=== PATIENT | male | born 1970 | race Caucasian/White ===

== ENCOUNTER 2016-10-31 07:28 | Emergency (ER) | payer MEDICAID ==
[~2016-10-31] VITALS: Ht 167.6 cm; Wt 64.0 kg
[~2016-10-31 07:28] MED LIST: IBUP-22
[2016-10-31 07:36] VITALS: BP 163/107
== END 2016-10-31 10:21 | disposition home or self-care (01) ==
LOC: ER 08:05
DX: L73.9 Follicular disorder, unspecified (principal); Z87.891 Personal history of nicotine dependence; Z88.0 Allergy status to penicillin; Z88.2 Allergy status to sulfonamides
CPT/HCPCS: 99282; Z7610

== ENCOUNTER 2016-12-15 09:52 | Emergency (ER) | payer MEDICAID | END 2016-12-15 11:05 | disposition left against medical advice (07) | LOC: ER 11:05 | DX: S61.411A Laceration without foreign body of right hand, initial encounter (principal); Z53.21 Procedure and treatment not carried out due to patient leaving prior to being seen by health care provider; X58.XXXA Exposure to other specified factors, initial encounter; Y93.89 Activity, other specified; Y99.8 Other external cause status; Y92.89 Other specified places as the place of occurrence of the external cause ==

== ENCOUNTER 2016-12-18 12:44 | Emergency (ER) | payer MEDICAID ==
[~2016-12-18] VITALS: Ht 170.2 cm; Wt 65.0 kg
[2016-12-18] MEDS ORDERED: TETANUS AND DIPHTHERIA TOX/PF 0.5ML SYR (ADULT) IM ONE (14:00)
[2016-12-18] MEDS ORDERED: TETANUS, DIPHTHERIA, PERTUSSIS VAC/PF 0.5ML (>7YR OLD) IM ONE (15:00)
[2016-12-18 15:11] VITALS: BP 120/68
== END 2016-12-18 15:12 | disposition home or self-care (01) ==
LOC: ER 13:54
DX: S61.411D Laceration without foreign body of right hand, subsequent encounter (principal); Z88.2 Allergy status to sulfonamides; Z88.8 Allergy status to other drugs, medicaments and biological substances
CPT/HCPCS: 90471; 90714; 90715; 99283

== ENCOUNTER 2016-12-22 12:29 | Emergency (ER) | payer MEDICAID ==
[~2016-12-22] VITALS: Ht 167.6 cm; Wt 64.0 kg
[2016-12-22 13:26] VITALS: BP 171/102
== END 2016-12-22 13:44 | disposition left against medical advice (07) ==
LOC: ER 13:05
DX: Z04.8 Encounter for examination and observation for other specified reasons (principal)
CPT/HCPCS: 99281; Z7610

== ENCOUNTER 2016-12-27 18:00 | Emergency (ER) | payer MEDICAID ==
[~2016-12-27] VITALS: Ht 172.7 cm; Wt 65.0 kg
[2016-12-27 18:15] VITALS: BP 217/133
== END 2016-12-27 20:05 | disposition left against medical advice (07) ==
LOC: ER 20:04
DX: M79.643 Pain in unspecified hand (principal); Z53.21 Procedure and treatment not carried out due to patient leaving prior to being seen by health care provider

== ENCOUNTER 2017-02-02 09:56 | Emergency (ER) | payer MEDICAID ==
[~2017-02-02] VITALS: Ht 172.7 cm; Wt 60.0 kg
[2017-02-02] MEDS ORDERED: SODIUM CHLORIDE 0.9% IRRIG SOLUTION 1000ML IR ONE (11:00)
[2017-02-02] MEDS ORDERED: LIDOCAINE HCL/EPINEPHRINE 1%-EPI 1:100,000 20 ML VIAL INFIL ONE (11:00)
[2017-02-02] MEDS ORDERED: KETOROLAC 60MG/2ML VIAL IM ONE (11:00)
[2017-02-02] MEDS ORDERED: LIDOCAINE HCL 1%/EPI 1:200,000 30 ML VIAL MC ONE (11:30)
[2017-02-02 13:12] VITALS: BP 154/88
== END 2017-02-02 13:30 | disposition home or self-care (01) ==
LOC: ER 10:34
DX: H05.012 Cellulitis of left orbit (principal); H00.036 Abscess of eyelid left eye, unspecified eyelid; Z88.0 Allergy status to penicillin; Z20.6 Contact with and (suspected) exposure to human immunodeficiency virus [HIV]; Z88.2 Allergy status to sulfonamides
CPT/HCPCS: 10060; 96372; 99283; A4217; J1885; J3490; X7700; Z7610

== ENCOUNTER 2017-02-10 00:04 | Emergency (ER) | payer MEDICAID ==
[~2017-02-10] VITALS: Ht 172.7 cm; Wt 63.0 kg
[2017-02-10 04:00] VITALS: BP 199/116
[2017-02-10] MEDS ORDERED: ACETAMINOPHEN 325MG TABLET PO ONE (04:15)
== END 2017-02-10 05:31 | disposition left against medical advice (07) ==
LOC: ER 00:04
DX: T14.8 Other injury of unspecified body region (principal); L03.818 Cellulitis of other sites; W57.XXXA Bitten or stung by nonvenomous insect and other nonvenomous arthropods, initial encounter; Y93.89 Activity, other specified; R23.8 Other skin changes; R03.0 Elevated blood-pressure reading, without diagnosis of hypertension; Y92.89 Other specified places as the place of occurrence of the external cause; F12.90 Cannabis use, unspecified, uncomplicated; Z88.2 Allergy status to sulfonamides; Z88.1 Allergy status to other antibiotic agents; Z88.0 Allergy status to penicillin
CPT/HCPCS: 99283; Z7610

== ENCOUNTER 2017-03-10 15:40 | Inpatient (IN) | payer MEDICAID ==
[~2017-03-10] VITALS: Ht 172.7 cm; Wt 54.4 kg
[2017-03-10] MEDS ORDERED: MORPHINE SULFATE 4 MG/ML CPJ (NOT FOR IM USE) IV STA (18:11)
[2017-03-10] MEDS ORDERED: ONDANSETRON HCL 4MG/2ML VIAL IV STA (18:11)
[2017-03-10] MEDS ORDERED: SODIUM CHLORIDE 0.9% 1,000 ML IV ONE (18:11)
[2017-03-10] MEDS ORDERED: HYDRALAZINE 20MG/ML VIAL IV ONE (18:15)
[2017-03-10 18:29] LABS: HEMATOCRIT. 25.1 % (42.0-52.0); HEMOGLOBIN. 8.7 g/dL (14.0-18.0); MEAN CORPUSCULAR HEMOGLOBIN 33.7 pg (28.0-32.0); MEAN CORPUSCULAR VOLUME 97.4 fL (80.0-94.0); MEAN PLATELET VOLUME 7.8 fl (7.4-10.4); PLATELET 170 x1000/uL (130-400); RED BLOOD CELL COUNT 2.57 mill/uL (4.7-6.1); RED CELL DISTRIBUTION WIDTH 17.2 % (11.6-14.6)
[2017-03-10 18:30] LABS: PROTHROMBIN TIME 10.6 sec (9.4-11.6)
[2017-03-10 18:39] LABS: CARBON DIOXIDE 25 mEq/L (21-32); CHLORIDE 97 mEq/L (98-107); TROPONIN I 0.02 ng/mL (0.00-0.04)
[2017-03-10 18:56] LABS: CLARITY URINE CLEAR (CLEAR); COLOR URINE YELLOW (YELLOW); GLUCOSE URINE TRACE (NEGATIVE); KETONES URINE NEGATIVE (NEGATIVE); LEUKOCYTE ESTERASE URINE TRACE (NEGATIVE); NITRITE URINE NEGATIVE (NEGATIVE); OCCULT BLOOD URINE 1+ (NEGATIVE); PROTEIN URINE 2+ (NEGATIVE); SPECIFIC GRAVITY URINE 1.014 (1.005-1.030)
[2017-03-10 20:10] LABS: PLATELET ESTIMATE NORMAL
[2017-03-11] MEDS ORDERED: LABETALOL 5MG/ML SYR 20 MG/4 ML SYRINGE IV NR (05:30)
[2017-03-11] MEDS ORDERED: LABETALOL HCL 20MG/4ML CARPUJECT IV ONE (05:30)
[2017-03-11] MEDS ORDERED: ONDANSETRON HCL 4MG/2ML VIAL IV PRN ×2 (10:15→13:45)
[2017-03-11] MEDS ORDERED: HYDROCODONE/ACETAMINOPHEN 5/325MG TABLET PO PRN (10:15)
[2017-03-11] MEDS ORDERED: IPRATROPIUM/ALBUTEROL 0.5-3(2.5)MG/3ML NEB INH PRN (10:15)
[2017-03-11] MEDS ORDERED: DOCUSATE SODIUM 100MG CAPSULE PO PRN (10:15)
[2017-03-11 10:21] VITALS: BP 193/118
[2017-03-11] MEDS: METOPROLOL TARTRATE 25MG TABLET PO SCH ×2 (11:24→22:11)
[2017-03-11] MEDS: AMLODIPINE 10MG TABLET PO SCH (11:24)
[2017-03-11] MEDS: MORPHINE SULFATE 4 MG/ML CPJ (NOT FOR IM USE) IV PRN ×2 (11:27→22:25)
[2017-03-11] MEDS: SODIUM CHLORIDE 0.45% 1,000 ML IV SCH (11:33)
[2017-03-11] MEDS ORDERED: BACITRACIN ZINC 15GM TUBE TOP ONE (11:34)
[2017-03-11] MEDS ORDERED: NORMAL SALINE 0.9% 10 ML SYR ONE (11:35)
[2017-03-11] MEDS ORDERED: VANCOMYCIN HCL 500 MG/VIAL ONE (11:35)
[2017-03-11] MEDS ORDERED: BACITRACIN 50,000 UNITS/VIAL ONE (11:35)
[2017-03-11] MEDS ORDERED: PROPOFOL 200MG/20ML VIAL IV ONE (12:36)
[2017-03-11] MEDS ORDERED: LIDOCAINE HCL 1% 20ML VIAL (Pyxis) INJ ONE (12:36)
[2017-03-11] MEDS ORDERED: ROCURONIUM BROMIDE 10MG/ML VIAL 5ML IV ONE (12:36)
[2017-03-11] MEDS ORDERED: MIDAZOLAM HCL 2 MG/2 ML VIAL ONE (12:36)
[2017-03-11] MEDS ORDERED: FENTANYL CITRATE/PF 50MCG/ML 2ML VIAL ONE (12:36)
[2017-03-11] MEDS ORDERED: SUCCINYLCHOLINE CHLORIDE 200MG/10ML VIAL IV ONE (12:37)
[2017-03-11] MEDS ORDERED: CEFAZOLIN SODIUM 1000MG/VIAL ONE (12:51)
[2017-03-11] MEDS ORDERED: ONDANSETRON HCL 4MG/2ML VIAL ONE (13:30)
[2017-03-11] MEDS ORDERED: GLYCOPYRROLATE 0.2 MG/ML 2ML VIAL ONE (13:33)
[2017-03-11] MEDS ORDERED: NEOSTIGMINE METHYLSULFATE 1MG/ML 10 ML VIAL ONE (13:33)
[2017-03-11] MEDS ORDERED: SODIUM CHLORIDE 0.9% 1,000 ML IV SCH (13:42)
[2017-03-11] MEDS ORDERED: HYDRALAZINE 20MG/ML VIAL IV PRN (13:45)
[2017-03-11] MEDS ORDERED: HYDROMORPHONE HCL/PF 2MG/ML CPJ IV PRN (13:45)
[2017-03-11 16:04] VITALS: BP 140/87
[2017-03-11 20:00] VITALS: BP 154/96
[2017-03-11] MEDS: CEFAZOLIN 1000MG PREMIX 50 ML IV SCH (22:12)
[2017-03-12] VITALS: BP 155/94
[2017-03-12] MEDS: CLONIDINE 0.1MG TABLET PO PRN ×2 (01:16→20:49)
[2017-03-12 04:00] VITALS: BP 156/91
[2017-03-12] MEDS: CEFAZOLIN 1000MG PREMIX 50 ML IV SCH (05:14)
[2017-03-12 08:00] VITALS: BP 140/87
[2017-03-12 08:39] LABS: CARBON DIOXIDE 24 mEq/L (21-32); CHLORIDE 100 mEq/L (98-107)
[2017-03-12] MEDS: AMLODIPINE 10MG TABLET PO SCH (08:40)
[2017-03-12] MEDS: ASPIRIN 81MG EC TABLET PO SCH (08:41)
[2017-03-12] MEDS: ENOXAPARIN 40MG/0.4ML SYR SUBCUT SCH (08:41)
[2017-03-12] MEDS: METOPROLOL TARTRATE 25MG TABLET PO SCH ×2 (08:41→20:48)
[2017-03-12] MEDS: MORPHINE SULFATE 4 MG/ML CPJ (NOT FOR IM USE) IV PRN (09:29)
[2017-03-12 12:00] VITALS: BP 140/87
[2017-03-12 13:01] LABS: BASOPHILS % 1.4 % (0.0-2.0); EOSINOPHILS % 0.8 % (0.0-5.0); LYMPHOCYTES % 12.6 % (20.0-50.0); MEAN CORPUSCULAR HEMOGLOBIN 32.5 pg (28.0-32.0); MEAN CORPUSCULAR VOLUME 94.4 fL (80.0-94.0); MEAN PLATELET VOLUME 8.4 fl (7.4-10.4); MONOCYTES % 14.1 % (2.0-8.0); NEUTROPHILS % 71.1 % (40.0-76.0); PLATELET 128 x1000/uL (130-400); RED BLOOD CELL COUNT 2.19 mill/uL (4.7-6.1); RED CELL DISTRIBUTION WIDTH 17.5 % (11.6-14.6)
[2017-03-12 13:56] LABS: HEMATOCRIT. 20.7 % (42.0-52.0); HEMOGLOBIN. 7.1 g/dL (14.0-18.0)
[2017-03-12] MEDS: SODIUM CHLORIDE 0.45% 1,000 ML IV SCH (14:43)
[2017-03-12 17:02] VITALS: BP 137/88
[2017-03-12 20:00] VITALS: BP 156/99
[2017-03-13] VITALS: BP 149/101
[2017-03-13 04:00] VITALS: BP 140/90
[2017-03-13 08:00] VITALS: BP 152/96
[2017-03-13] MEDS: ASPIRIN 81MG EC TABLET PO SCH (08:09)
[2017-03-13] MEDS: AMLODIPINE 10MG TABLET PO SCH (08:09)
[2017-03-13] MEDS: ENOXAPARIN 40MG/0.4ML SYR SUBCUT SCH (08:10)
[2017-03-13] MEDS: METOPROLOL TARTRATE 25MG TABLET PO SCH ×2 (08:10→21:37)
[2017-03-13 12:19] VITALS: BP 136/81
[2017-03-13 13:21] LABS: BASOPHILS % 0.9 % (0.0-2.0); EOSINOPHILS % 1.4 % (0.0-5.0); HEMATOCRIT. 22.8 % (42.0-52.0); LYMPHOCYTES % 13.2 % (20.0-50.0); MEAN CORPUSCULAR HEMOGLOBIN 32.5 pg (28.0-32.0); MEAN PLATELET VOLUME 8.4 fl (7.4-10.4); MONOCYTES % 14.2 % (2.0-8.0); NEUTROPHILS % 70.3 % (40.0-76.0); PLATELET 150 x1000/uL (130-400); RED BLOOD CELL COUNT 2.45 mill/uL (4.7-6.1); RED CELL DISTRIBUTION WIDTH 16.7 % (11.6-14.6)
[2017-03-13 16:00] VITALS: BP 146/91
[2017-03-13] MEDS: SODIUM CHLORIDE 0.45% 1,000 ML IV SCH (17:27)
[2017-03-13 20:00] VITALS: BP 150/93
[2017-03-13] MEDS: CLONIDINE 0.1MG TABLET PO PRN (21:38)
[2017-03-14] VITALS: BP 142/89
[2017-03-14 04:00] VITALS: BP 137/87
[2017-03-14 08:00] VITALS: BP 167/97
[2017-03-14] MEDS: AMLODIPINE 10MG TABLET PO SCH (08:58)
[2017-03-14] MEDS: METOPROLOL TARTRATE 25MG TABLET PO SCH ×2 (08:59→21:11)
[2017-03-14] MEDS: ENOXAPARIN 40MG/0.4ML SYR SUBCUT SCH (08:59)
[2017-03-14] MEDS: ASPIRIN 81MG EC TABLET PO SCH (09:00)
[2017-03-14 12:00] VITALS: BP 136/85
[2017-03-14 16:00] VITALS: BP 145/89
[2017-03-14] MEDS: SODIUM CHLORIDE 0.45% 1,000 ML IV SCH (18:25)
[2017-03-14 20:00] VITALS: BP 165/102
[2017-03-15] VITALS: BP 165/100
[2017-03-15 04:00] VITALS: BP 149/99
[2017-03-15 08:00] VITALS: BP 158/98
[2017-03-15] MEDS: METOPROLOL TARTRATE 25MG TABLET PO SCH ×2 (08:56→21:25)
[2017-03-15] MEDS: ASPIRIN 81MG EC TABLET PO SCH (08:56)
[2017-03-15] MEDS: ENOXAPARIN 40MG/0.4ML SYR SUBCUT SCH (08:56)
[2017-03-15] MEDS: AMLODIPINE 10MG TABLET PO SCH (08:56)
[2017-03-15] MEDS: SODIUM CHLORIDE 0.45% 1,000 ML IV SCH ×2 (08:57→20:32)
[2017-03-15 12:00] VITALS: BP 156/97
[2017-03-15] MEDS: ACETAMINOPHEN 325MG TABLET PO PRN (13:26)
[2017-03-15] MEDS: CLONIDINE 0.1MG TABLET PO PRN (13:27)
[2017-03-15 16:00] VITALS: BP 127/82
[2017-03-15 20:00] VITALS: BP 150/97
[2017-03-16] VITALS: BP 151/101
[2017-03-16 04:00] VITALS: BP 151/96
[2017-03-16 08:00] VITALS: BP 149/90
[2017-03-16] MEDS: ASPIRIN 81MG EC TABLET PO SCH (10:03)
[2017-03-16] MEDS: ENOXAPARIN 40MG/0.4ML SYR SUBCUT SCH (10:03)
[2017-03-16] MEDS: METOPROLOL TARTRATE 25MG TABLET PO SCH ×2 (10:04→21:00)
[2017-03-16] MEDS: AMLODIPINE 10MG TABLET PO SCH (10:04)
[2017-03-16] MEDS: SODIUM CHLORIDE 0.45% 1,000 ML IV SCH (11:00)
[2017-03-16 12:00] VITALS: BP 155/96
[2017-03-16 16:00] VITALS: BP 160/90
[2017-03-17] VITALS: BP 182/112
[2017-03-17] MEDS: SODIUM CHLORIDE 0.45% 1,000 ML IV SCH (00:20)
[2017-03-17] MEDS: CLONIDINE 0.1MG TABLET PO PRN (00:31)
[2017-03-17] MEDS: ACETAMINOPHEN 325MG TABLET PO PRN (00:32)
[2017-03-17 04:00] VITALS: BP 143/95
[2017-03-17 07:53] LABS: HEMATOCRIT. 22.8 % (42.0-52.0); MEAN CORPUSCULAR HEMOGLOBIN 34.8 pg (28.0-32.0); MEAN CORPUSCULAR VOLUME 99.5 fL (80.0-94.0); PLATELET 181 x1000/uL (130-400); RED BLOOD CELL COUNT 2.29 mill/uL (4.7-6.1); RED CELL DISTRIBUTION WIDTH 16.2 % (11.6-14.6)
[2017-03-17 08:00] VITALS: BP 162/103
[2017-03-17] MEDS: ASPIRIN 81MG EC TABLET PO SCH (09:51)
[2017-03-17] MEDS: METOPROLOL TARTRATE 25MG TABLET PO SCH (09:51)
[2017-03-17] MEDS: AMLODIPINE 10MG TABLET PO SCH (09:51)
[2017-03-17] MEDS: ENOXAPARIN 40MG/0.4ML SYR SUBCUT SCH (09:52)
[2017-03-17 12:00] VITALS: BP 161/101
[2017-03-17 12:24] VITALS: BP 161/101
[2017-03-17 16:26] LABS: PLATELET ESTIMATE NORMAL
== END 2017-03-17 16:00 | DRG 308 ==
LOC: ER 15:48 → 8WST 20:33 → EDBEDREQ 20:38 → CANRESERV 03-11 02:20 → ENRESERV 03-11 02:20 → 8WST 03-11 09:14
PROVIDERS: ADMIT Hospitalist; ATTEND Hospitalist
PROC: 0QS734Z Reposition Left Upper Femur with Internal Fixation Device, Percutaneous Approach (ICD-10-PCS; principal; 2017-03-11 12:00)
DX: S72.002A Fracture of unspecified part of neck of left femur, initial encounter for closed fracture (principal); R64 Cachexia; E44.0 Moderate protein-calorie malnutrition; E87.1 Hypo-osmolality and hyponatremia; E83.51 Hypocalcemia; R65.10 Systemic inflammatory response syndrome (SIRS) of non-infectious origin without acute organ dysfunction; S52.509A Unspecified fracture of the lower end of unspecified radius, initial encounter for closed fracture; I10 Essential (primary) hypertension; D64.9 Anemia, unspecified; I16.0 Hypertensive urgency; Z91.14 Patient's other noncompliance with medication regimen; Z88.8 Allergy status to other drugs, medicaments and biological substances; Z91.19 Patient's noncompliance with other medical treatment and regimen; Z68.1 Body mass index [BMI] 19.9 or less, adult; W01.0XXA Fall on same level from slipping, tripping and stumbling without subsequent striking against object, initial encounter; Y93.89 Activity, other specified; Y92.89 Other specified places as the place of occurrence of the external cause; Y99.8 Other external cause status
CPT/HCPCS: 36415; 71010; 73110; 73502; 73503; 80048; 80053; 81001; 83690; 83880; 84484; 85007; 85025; 85027; 85610; 86850; 86900; 86920; 93005; 96361; 96374; 96375; 97110; 97116; 97162; 97166; 97530; 97760; 99285; A4216; A6261; C1713; J0330; J0360; J0690; J1650; J2250; J2270; J2405; J2704; J2710; J3010; J3370; J3490; J7030; J7050